=== PATIENT | female | born 1985 | race Caucasian/White ===

== ENCOUNTER 2016-06-08 12:10 | Inpatient (IN) | payer OTHER ==
[~2016-06-08] VITALS: Ht 162.6 cm; Wt 93.2 kg
[2016-06-08] VITALS (10 sets, daily range): BP systolic 100–148; BP diastolic 64–94; PULSE 94–146; RESP 20–24; O2SAT 91–95
[~2016-06-08 12:10] MED LIST: ALBU2.5V4 IH; ALBU90AE IH; AMT50T PO; CHOL200025 PO; IPRA3AMP IH; LEVO5TAB13 PO; MAGN400T4 PO; MONT10TA23 PO; NPR500T PO; OMEP40CA36 PO; PAROXETINE HCL PO; POLY17PO2 PO; RIBOFLAVIN PO; TIOT18CA3 IH
[2016-06-08 12:49] LABS: BASOPHILS % (AUTO) 0.4 % (0-3); EOSINOPHILS % (AUTO) 0.1 % (0-5); MONOCYTES % (AUTO) 15.8 % (4-12); Mean Corpuscular Hemoglobin 30.7 pg (27.0-35.0); Mean Corpuscular Volume 88.9 fL (81-100); NEUTROPHILS % (AUTO) 64.8 % (40-74); Platelet Count 213 bil/L (150-400)
--- NOTE | 2016-06-08 12:57 | DRSVH ---
PROCEDURE: X-RAY CHEST ONE VIEW, PORTABLE ([id number]) INDICATIONS: SOB, CHEST PAIN TECHNIQUE: One view of the chest was acquired. COMPARISON: 01/05/2016 FINDINGS: Surgical changes and devices: None. Lungs and pleura: No pleural effusions or pneumothorax. Lungs are clear. Mediastinum: Mediastinal contours appear normal. Heart size is normal. Bones and chest wall: No suspicious bony lesions. Overlying soft tissues appear unremarkable. IMPRESSION: No acute cardiopulmonary abnormality Dictated by: Yves Franco M.D. on 06/08/2016 at 12:55 Approved by: Yves Franco M.D. on 06/08/2016 at 12:55
[2016-06-08] MEDS ORDERED: 0.9% Sodium Chloride 1,000 ML IV ONE (13:05)
[2016-06-08] MEDS ORDERED: Albuterol-Ipratropium 3 mL Inhalation Solution NEB ONE (13:05)
--- NOTE | 2016-06-08 13:18 | ED.REPORT ---
HPI-Dyspnea / Wheezing Date of Service Jun 08, 2016 ED Provider: Sea Carlos MD 31-year-old woman presents with shortness of breath, dry cough, fever, nausea, vomiting 3 days. She said she had a fever of 103 around 3am, she went in the shower to try to decrease her fever then went to lay back down in bed and felt to 9 out of 10 stabbing sensation in her chest that radiated into her back. She has weakness all over, has not been able to eat or keep anything down for the last 3 days, has not had any diarrhea or constipation. She denies any rashes, claims to having a headache, no changes in vision, but is a little dizzy. She has a history of moderate persistent asthma for which she takes daily steroids, as well as nebulizers as needed. She has not taken any breathing treatments today. The chest pain described as being substernal radiating into the back with some radiation across the right breast into the right axilla. She has a significant family history of aortic dissection in her maternal grandmother. She said she had this type of pain before only not as severe as 6 months ago, and was told that it was due to pneumonia. Nursing Notes Stated Complaint: CHEST PAIN Chief Complaint: Respiratory Complaints Nursing Notes Reviewed: Yes Allergies: Coded Allergies: latex (Verified Allergy, Severe, BLISTERS/RASH, 06/08/16) watermelon (Verified Allergy, Severe, Anaphylaxis, 06/08/16) meloxicam (Verified Allergy, Unknown, UNKNOWN, 06/08/16) Anesthetics - Amide Type (Verified Adverse Reaction, Severe, takes her a long time to wake up, 06/08/16) ropinirole (Verified Adverse Reaction, Severe, LOWER LEG EDEMA, 06/08/16) Uncoded Allergies: Foam soap/artist model (Adverse Reaction, Intermediate, Hives, 12/21/14) Scheduled Amitriptyline (Amitriptyline) 50 Mg Tab 50-100 MG PO HS Cholecalciferol (Vitamin D3) (Vitamin D3) 2,000 Unit Tablet 2,000 UNIT PO QAM Fluticasone Propionate (Flonase Allergy Relief) 50 Mcg/Actuation Spring.susp 1 SPRAY NS QAM Fluticasone/Salmeterol (Advair 500-50 Diskus) 1 Each Disk.w.dev 1 PUFF IH BID Levocetirizine Dihydrochloride (Levocetirizine Dihydrochloride) 5 Mg Tablet 5 MG PO QAM Magnesium Oxide (Magnesium Oxide) 400 Mg Tablet 400 MG PO BID Montelukast (Montelukast) 10 Mg Tablet 10 MG PO QAM Olanzapine (Olanzapine) 5 Mg Tablet 5 MG PO QAM Omeprazole (Omeprazole) 40 Mg Capsule.dr 40 MG PO QAM Paroxetine HCl (Paroxetine ER) 25 Mg Tab.er.24h 25 MG PO HS Riboflavin (Vitamin B-2) 25 Mg Tablet 100 MG PO QAM Tiotropium Bigelow (Spiriva) 18 Mcg Cap.w.dev 18 MCG IH QAM Scheduled PRN Albuterol Neb Soln (Albuterol Neb Soln) 2.5 Mg/3 Ml Vial.neb 2.5 MG IH 6-7X DAY PRN PRN For Shortness of Breath Albuterol Sulfate (Proair Respiclick) 90 Mcg Aer.pow.ba 2 PUFF IH Q4H PRN PRN For Shortness of Breath Ipratropium/Albuterol Sulfate (Iprat-Albut 0.5-3(2.5) mg/3 mL Inhalant Soln) 3 Ml Ampul.neb 3 ML IH Q6 PRN PRN For Shortness of Breath DO NOT USE SPIRIVA WHILE TAKING DUONEB Polyethylene Glycol 3350 (Polyethylene Glycol 3350) 17 Gm Powd.pack 17 GM PO PRN prn General Time Seen by MD: 12:39 Chief Complaint Chest pain Stabbing 9.5 out of 10. Location: : Chest right: Substernal Quality: Stabbing Risk Factors CAD Risk Stratification Risk factors reviewed PE Risk Stratification Risk factors reviewed Past Medical History Past Medical History Anxiety Depression Asthma with developing COPD. Atrial fibrillation Tinnitus Sleep apnea Restless leg syndrome Pseudocholinesterase deficiency Pneumonia Menometrorrhagia Headaches Reports: Asthma, COPD, GERD Reports: Depression Past Surgical History Pins into left wrist from fracture 10 years old Reports: Hysterectomy Reports: Tubal ligation Family History Grandmother hypertension, Heart disease Maternal uncle diabetes type II Uncle brain cancer Smoking History Current Every Day Smoker (half a cigarette a day) Social History Lives with family at home Alcohol Use: Denies alcohol use Drug Use: THC (Annable's) Other Social History: Occupation stay at home mom. Ambulatory Status Independent Review of Systems Complete sys rev & neg: except as marked. Physical Exam General: Laying in bed, moderate respiratory distress, HEENT: Normocephalic, atraumatic, EOMI grossly, mucous membranes moist, conjunctiva pink. scars inferior lateral lip bilaterally. Cardiovascular: Tachycardic, rhythm appears regular, peripheral pulses 2/4 upper and lower extremities equal bilaterally. Pulmonary: Expiratory wheezing left greater than right, and chest excursion normal, tachypneic. Abdominal: Soft to palpation, bowel sounds present 4, no hepatosplenomegaly. Negative rebound. Extremities: No edema appreciated. No tenderness, asymmetry. Neuro: Neurologically grossly intact, strength is equal bilaterally upper and lower extremities. MSK: Able to move extremities on their own volition, strength 5 out of 5 equal bilaterally to upper and lower extremities. Initial Vital Signs Vital Signs (First) Date Time Temp Pulse Resp B/P Pulse Ox O2 Delivery O2 Flow Rate FiO2 06/08/16 12:14 37.5 146 20 126/79 95 06/08/16 12:31 Room Air 06/08/16 14:17 2 Initial VS: Reviewed Interpretation & Diagnostics Lab Results Interpretation Result Diagram: 06/09/16 0713 06/08/16 1215 Test 06/08/16 12:15 D-Dimer < 0.50mg/L FEU (<0.50) Hemoglobin A1c 4.9% (4.8-5.6) Magnesium Level 2.1mg/dL (1.6-2.6) Total Bilirubin 0.4mg/dL (0.0-1.2) Aspartate Amino Transf (AST/SGOT) 15U/L (0-50) Alanine Aminotransferase (ALT/SGPT) 13U/L (0-32) Alkaline Phosphatase 53U/L (25-150) Troponin T < 0.010ug/L (0.0-0.011) Total Protein 7.7g/dL (6.4-8.4) Albumin 4.6g/dL (3.4-5.0) Lipase 25U/L (13-60) Hold Vega Top Tube Received (Received) Lab Results Interpretation: Mild hemochromatosis Negative d-dimer X-Ray Chest Interpretation Chest Xray Interpretation: IMPRESSION: No acute cardiopulmonary abnormality Dictated by: Yves Franco M.D. on 06/08/2016 at 12:55 CT Chest Interpretation IMPRESSION: 1. No findings to suggest aortic dissection. Of note, the aortic root is poorly characterized given cardiac motion artifact. 2. No central acute pulmonary embolus. 3. Mild, diffuse pulmonary radiopacities as above. Given the acuity of these findings, differential considerations include viral pneumonitis or interstitial pneumonitis. These findings were discussed with Dr. Ramirez at 4 PM on 06/08/16. Dictated by: Laxmi Gerard M.D. on 06/08/2016 at 15:50 Procedures Procedure Notes: Road test: Patient desaturated 92% while ambulating on room air through the emergency department Re-Eval/Medical Decision Med Decision/Clinical Course Patient with a history of moderate persistent asthma presented with worsening shortness of breath, and stabbing chest pain radiating into her back, family history of aortic dissection, and current smoker. Initial troponin was negative , angio CT did not show signs of dissection or pulmonary embolism, however there were opacities suggesting viral pneumonitis or interstitial pneumonitis. Patient was hospitalized previously for similar complaints and required hospital stay for treatment for pneumonia. Discussed with patient the findings and our concerns, and requested hospital admission for Bilateral community acquired pneumonia and hypoxic respiratory failure. Source of Hx: Old records Consultation : Referral / Consult Name: Jem Valderrama MD Consulted With: Hospitalist Requested Call at: 16:40 Call Returned at: 16:44 Professor Of Archaeology: Will see patient, Agrees with plan, Accepts admit Differential Diagnosis: Positive: Asthma, Pulmonary embolism, Respiratory failure Counseled Regarding: Diagnosis, Lab results, Need for admission Discharge & Departure Impression: Primary Impression: Community acquired bacterial pneumonia Additional Impression: Acute respiratory failure with hypoxia and hypercapnia Disposition: ADMITTED TO HOSPITAL Discharge Condition All VS Reviewed: Yes Condition: Stable Referrals: Braydon Pruitt DO (PCP) Attending Statement The patient was seen and examined together with Dr. Ramirez on 06/08/16 and I agree with the history, exam and plan as outlined in the note above. Gee Ramirez DO Jun 08, 2016 13:18 Sea Carlos MD Jun 09, 2016 07:23 Lab Results Interpretation: Mild hemochromatosis Negative d-dimer X-Ray Chest Interpretation Chest Xray Interpretation: IMPRESSION: No acute cardiopulmonary abnormality Dictated by: Yves Franco M.D. on 06/08/2016 at 12:55 CT Chest Interpretation IMPRESSION: 1. No findings to suggest aortic dissection. Of note, the aortic root is poorly characterized given cardiac motion artifact. 2. No central acute pulmonary embolus. 3. Mild, diffuse pulmonary radiopacities as above. Given the acuity of these findings, differential considerations include viral pneumonitis or interstitial pneumonitis. These findings were discussed with Dr. Ramirez at 4 PM on 06/08/16. Dictated by: Laxmi Gerard M.D. on 06/08/2016 at 15:50 Procedures Procedure Notes: Road test: Patient desaturated 92% while ambulating on room air through the emergency department Re-Eval/Medical Decision Med Decision/Clinical Course Patient with a history of moderate persistent asthma presented with worsening shortness of breath, and stabbing chest pain radiating into her back, family history of aortic dissection, and current smoker. Initial troponin was negative , angio CT did not show signs of dissection or pulmonary embolism, however there were opacities suggesting viral pneumonitis or interstitial pneumonitis. Patient was hospitalized previously for similar complaints and required hospital stay for treatment for pneumonia. Discussed with patient the findings and our concerns, and requested hospital admission for Bilateral community acquired pneumonia and hypoxic respiratory failure. Source of Hx: Old records Consultation : Referral / Consult Name: Jem Valderrama MD Consulted With: Hospitalist Requested Call at: 16:40 Call Returned at: 16:44 Professor Of Archaeology: Will see patient, Agrees with plan, Accepts admit Differential Diagnosis: Positive: Asthma, Pulmonary embolism, Respiratory failure Counseled Regarding: Diagnosis, Lab results, Need for admission Discharge & Departure Impression: Primary Impression: Community acquired bacterial pneumonia Additional Impression: Acute respiratory failure with hypoxia and hypercapnia Disposition: ADMITTED TO HOSPITAL Discharge Condition All VS Reviewed: Yes Condition: Stable Referrals: Braydon Pruitt DO (PCP) Gee Ramirez DO Jun 08, 2016 13:18
[2016-06-08 13:22] LABS: TROPONIN T < 0.010 ug/L (0.0-0.011)
[2016-06-08 13:31] LABS: Magnesium 2.1 mg/dL (1.6-2.6)
--- NOTE | 2016-06-08 16:06 | DRSVH ---
PROCEDURE: CT ANG CHEST/ABD W/WO CONTRAST ([id number]) INDICATIONS: chest pain TECHNIQUE: Precontrast 5 mm thick sections acquired from the lung apices to the iliac crests. After the adminis tration of intravenous contrast, 3 mm thick sections again acquired from the lung apices to the iliac crests. 3-dimensional maximum intensity projection (MIP) oblique sagittal and coronal reformats wer e then acquired, and/or 3-dimensional volume rendering reformats. For radiation dose reduction, the following was used: automated exposure control. COMPARISON: [facility], CT, CT ANGIO CHEST PE, 03/12/2015, 22:18. [facility] , CT, CT ANGIO CHEST PE, 12/27/2015, 15:42. FINDINGS: Image quality: Excellent. AORTA: Motion artifact limits evaluation of the aortic root. The thoracic and abdominal aorta demonstrate ot herwise normal caliber and course. No mural hematoma, atheromatous plaque, calcification, aneurysmal dilatation, stenosis, or ulceration. No findings to suggest aortic dissection. No periaortic fat stra nding or fluid. CHEST: Lungs and pleura: Patchy air space opacities are present bilaterally, with a central distribution, sp aring the periphery of the lungs. These are new when compared with the prior CT of the chest dated . No pleural effusion or pneumothorax. Mediastinum: Heart size is normal. No pericardial effusion. No mediastinal or hilar adenopathy by size criteria. Central pulmonary arteries are normal in size. There are no filling defects within th e central or segmental pulmonary arteries to suggest acute pulmonary embolus. Esophagus is normal in caliber. No hiatal hernias. Bones and chest wall: No axillary adenopathy by size criteria. Thyroid gland is unremarkable. No s uspicious bony lesions. No vertebral body compression fractures. ABDOMEN: Vasculature: Celiac trunk and mesenteric arteries are patent. Renal arteries are also patent. Solid organs: Liver and spleen are normal in size. Gallbladder is unremarkable. Biliary system is non dilated. Pancreas enhances normally. No adrenal nodules. Both kidneys are normal in size and e nhancement, without hydronephrosis. Peritoneum and bowel: No free fluid or air. Bowel loops are normal in caliber and wall thickness. Nodes and vessels: No retroperitoneal or mesenteric adenopathy by size criteria. Inferior vena cava is normal in morphology. Bones: No suspicious bony lesions. No vertebral body compression fractures. Miscellaneous: No ventral hernias. IMPRESSION: 1. No findings to suggest aortic dissection. Of note, the aortic root is poorly characterized given c ardiac motion artifact. 2. No central acute pulmonary embolus. 3. Mild, diffuse pulmonary radiopacities as above. Given the acuity of these findings, differential c onsiderations include viral pneumonitis or interstitial pneumonitis. These findings were discussed with Dr. Ramirez at 4 PM on 06/08/16. Dictated by: Laxmi Gerard M.D. on 06/08/2016 at 15:50 Approved by: Laxmi Gerard M.D. on 06/08/2016 at 16:05
[2016-06-08] MEDS ORDERED: cefTRIAXone Inj 1,000 MG in Dextrose 5% Minibag Plus 50 ML IV ONE (16:50)
[2016-06-08] MEDS ORDERED: Polyethylene Glycol (PEG) 17 Gm Powder PO PRN ×3 (16:55→18:20)
[2016-06-08] MEDS ORDERED: Heparin 5,000 Unit/mL Inj SUBQ SCH (16:55)
[2016-06-08] MEDS ORDERED: Alum-Mag Hydrox-Simeth 30 mL Suspension PO PRN ×2 (16:55→18:15)
[2016-06-08] MEDS ORDERED: cefTRIAXone Inj 2,000 MG in Dextrose 5% Minibag Plus 50 ML IV ONE (16:55)
[2016-06-08] MEDS ORDERED: MethylprednisoLONE Sodium Succinate 62.5 mg/mL 2 mL Inj IVPUSH ONE (17:05)
--- NOTE | 2016-06-08 17:55 | NUR ---
Admission patient arrived to floor from ED at 1750. Oriented patient to room and hospital policies. Admits to SOB at rest. States pain when inhaling. Lab contacted this RN due to orders received for blood cultures yet ED RN states that IV ABX have already been given. Directed lab to contact ordering MD. Continue frequent rounding.
[2016-06-08] MEDS ORDERED: Albuterol 2.5 mg/3 mL Inhalation Solution NEB PRN (18:20)
[2016-06-08] MEDS ORDERED: OLAN5TAB PO (18:46)
[2016-06-08] MEDS ORDERED: FLUT1DIS5 IH (18:46)
[2016-06-08] MEDS ORDERED: PARO25TA17 PO (18:46)
[2016-06-08] MEDS ORDERED: FLUT9.9S NS (18:46)
[2016-06-08] MEDS ORDERED: RIBO25TA PO (18:49)
[2016-06-08] MEDS: 0.9% Sodium Chloride 1,000 ML IV SCH (18:55)
--- NOTE | 2016-06-08 18:59 | HP ---
[address] [address] HISTORY AND PHYSICAL PATIENT: CLARITA STUBBS : 1985 MR#: [id number] ADMIT: 06/08/2016 JOB ID: [id number] PRIMARY CARE PROVIDER: Braydon Pruitt DO, [facility]. DIRECTOR BUILDING: Crista Hall MD Patient admitted from ED, inpatient status, Blue Team. CHIEF COMPLAINT: Shortness of breath. HISTORY OF PRESENT ILLNESS: This is a 31-year-old female with significant asthma, who has done pretty well recently but got sick about two weeks ago with wheezing, a little sore throat, noting that her daughter had a little bit of a cough. She saw Dr. Hall, who put her on prednisone for 80 for five days, then 40 mg for five days which helped. Then she stopped it, but got into trouble quickly and presents to the ED with a lot of respiratory difficulties. She had fever up to 103. She did not get her flu shot this year. Her sputum has been pretty clear, nonproductive. She now has a little pleuritic chest pain, also. In the ED, she was given nebulizers, Solu-Medrol, and is a little better. REVIEW OF SYSTEMS: Complete review of systems obtained, all pertinent positives in HPI above, rest of review of systems are negative. PAST MEDICAL HISTORY: 1. Asthma. 2. Reflux disease. 3. Depression. MEDICATIONS: 1. Levocetirizine 5 mg at bedtime. 2. ProAir p.r.n. 3. Albuterol nebulizers p.r.n. 4. DuoNebs p.r.n. when not on Spiriva. 5. Spiriva 1 puff daily. 6. Montelukast daily. 7. Magnesium 400 b.i.d. 8. Paroxetine 25 daily. 9. Omeprazole 40 daily. 10. Riboflavin 100 mg daily. 11. Amitriptyline 50-100 at bedtime p.r.n. sleep. 12. Naproxen p.r.n. ALLERGIES: 1. LATEX. 2. LIDOCAINE. 3. MELOXICAM. 4. ROPINIROLE. 5. BOTH GENERAL AND LOCAL ANESTHETICS. SOCIAL HISTORY: Patient lives with her . Former smoker, having quit about eight years ago. There is no alcohol use and no substance abuse. PHYSICAL EXAMINATION: Afebrile here in the hospital. Heart rate was 146 on admission, currently 121. Respiratory rate 24. Blood pressure is 148/94, and O2 sats are 94% on 1.5 L. There were no hypoxic values in the ED and to this point in time. Skin is warm and dry. Eyes: PERRLA. Mouth shows adequate hydration, no lesions. No JVD. Cardiac regular. No significant murmur. Her lungs have mixed inspiratory/expiratory wheezes. Moderate air entry and few crackles throughout. Abdomen is soft, nonacute, benign. Extremities showed no clubbing, cyanosis, edema. Cranial nerves 2-12 are intact. No gross motor or sensory defects noted. DIAGNOSES: 1. Acute asthma exacerbation present on admission. Active. Will continue with Solu-Medrol at 40 IV q.8. DuoNeb q.i.d. Albuterol nebs p.r.n. Will provide patient with Robitussin for her cough and continue with her montelukast and her riboflavin. 2. Possible acute pulmonary infection present on admission. Active. Viral versus bacterial. Will empirically start the patient on Rocephin and azithromycin with appropriate cultures. Will get Strep and Legionella titers and get a respiratory PCR, and depending on those results, make further decisions. 3. Gastroesophageal reflux disease, present on admission. Stable. Continue PPI, patient is on omeprazole at home. 4. Chronic depression, present on admission. Stable. Continue patient's Paxil. CODE STATUS: FULL CODE. Code sheet filled out.
[2016-06-08] MEDS: Codeine-guaiFENesin 10 mL Syrup PO PRN (20:02)
--- NOTE | 2016-06-08 20:18 | NUR ---
Pain Pt has a persistent dry cough. Difficult for her to talk due to the cough. She c/o chest pain which is worse with coughing rated at a 8 Given codeine syrup and naproxen Will monitor for effectiveness
[2016-06-08] MEDS: Ondansetron 2 mg/mL 2 mL Inj IVPUSH PRN (20:26)
[2016-06-08] MEDS: Albuterol-Ipratropium 3 mL Inhalation Solution NEB SCH (20:48)
[2016-06-08] MEDS: AMITRIP PO SCH (21:00)
[2016-06-08] MEDS: PARoxetine 20 mg Tablet PO SCH (21:57)
[2016-06-09] VITALS (12 sets, daily range): BP systolic 95–112; BP diastolic 59–68; PULSE 67–100; RESP 18–20; O2SAT 92–97
[2016-06-09] MEDS: Heparin 5,000 Unit/mL Inj SUBQ SCH ×3 (00:30→16:30)
[2016-06-09] MEDS: MethylprednisoLONE Sodium Succinate 40 mg/mL Inj IVPUSH SCH ×3 (00:31→19:58)
--- NOTE | 2016-06-09 01:27 | NUR ---
Cough Pt's dry cough has significantly decreased. Denies chest pain Resting comfortably. Will cont to monitor
[2016-06-09] MEDS: 0.9% Sodium Chloride 1,000 ML IV SCH ×2 (03:42→19:59)
[2016-06-09 07:18] LABS: BASOPHILS % (AUTO) 0.2 % (0-3); EOSINOPHILS % (AUTO) 0 % (0-5); MONOCYTES % (AUTO) 5.4 % (4-12); Mean Corpuscular Hemoglobin 30.3 pg (27.0-35.0); Mean Corpuscular Volume 90.4 fL (81-100); NEUTROPHILS % (AUTO) 82.2 % (40-74); Platelet Count 183 bil/L (150-400)
--- NOTE | 2016-06-09 07:55 | PCM.PNMED ---
Subjective Date of Service Jun 09, 2016 Subjective Feels about the same, still SOB and wheezy, no other problems overnight. PCR positive for human metapneumovirus. Exam Vital Signs Vital Sign - Last Date Time Temp Pulse Resp B/P Pulse Ox O2 Delivery O2 Flow Rate FiO2 06/09/16 05:37 36.3 67 18 95/59 93 OxyMask 1.00 Intake and Output 06/08/16 06/08/16 06/09/16 Cumulative From/Thru 15:00 23:00 07:00 06/08/16 12:14 - 06/09/16 06:06 Intake Total 1000 ml 1150 ml 2150 ml Output Total 1100 ml 1100 ml Balance 1000 ml 50 ml 1050 ml Intake Oral 250 ml 250 ml IV Total 1000 ml 900 ml 1900 ml Output Urine Total 1100 ml 1100 ml Exam Eyes; elizabeth eom intact HENT; mouth with out lesions, well hydrated CV; no murmur, regular Resp; diffuse bennett expiatory wheezing, mod air movement GI; soft, benign, non tender Skin; dry, no rash Neuro; 2-12 intact, no gross motor or sensory defects Lab and Diagnostics Result Diagram: 06/09/16 0713 06/08/16 1215 Assessment & Plan 1. Acute asthma exacerbation present on admission. -continue solumedrol at 40 IV q8 hours -duoneb qid and albuterol q2 prn -continue montelukast and her riboflavin -Robitussin for her 2. Acute Viral Pneumonitis present on admission. Active. -PCR positive for human metapneumovirus -supportive care -continue with IV antibiotics today if cultures remain negative consider stopping tomorrow 3. Gastroesophageal reflux disease, present on admission. Stable. -Continue PPI, patient is on omeprazole at home. 4. Chronic depression, present on admission. Stable. -Continue patient's Paxil. 5. Code Status -full code Jem Valderrama MD Jun 09, 2016 07:55
[2016-06-09] MEDS: Albuterol-Ipratropium 3 mL Inhalation Solution NEB SCH ×5 (08:06→20:24)
[2016-06-09] MEDS ORDERED: RIBOFLAVIN 100 MG PO SCH (08:30)
[2016-06-09] MEDS ORDERED: Tiotropium 18mcg/Cap 5 Capsule Inhaler Kit INHALATION SCH (08:30)
[2016-06-09] MEDS: Pantoprazole 40 mg ER24 Tablet PO SCH (08:59)
[2016-06-09] MEDS: cefTRIAXone Inj 2,000 MG in Dextrose 5% Minibag Plus 50 ML IV SCH (10:51)
--- NOTE | 2016-06-09 11:51 | NUR ---
Social Work: Screening Data: Pt is a 31 y/o female admitted for acute hypoxic resp failure, pneumonitis. Pt's PCP is Sonal, pt's insurance is [employer]. EMR reviewed, readmit score not listed. No d/c planning needs anticipated at this time. COOK PIE will continue to follow if needs arise. Assessment: Pt who is independent at baseline. Plan: Pt will d/c home via POV when medically stable. No d/c planning needs anticipated at this time. COOK PIE will continue to follow if needs arise. SURINDER Renteria
--- NOTE | 2016-06-09 19:46 | NUR ---
Respiratory- Up to bedside commode to void, otherwise has been on bedrest. Short of breath with minimal exertion. Patient complained of chest discomfort with coughing. Med given with good results for pain. Cough is unproductive. O2 on at 1.5 liters per oxy mask. Tele- sinus tach.
[2016-06-09] MEDS: PARoxetine 20 mg Tablet PO SCH (21:44)
[2016-06-09] MEDS: Codeine-guaiFENesin 10 mL Syrup PO PRN (21:44)
[2016-06-09] MEDS: AMITRIP PO SCH (21:46)
[2016-06-10] VITALS (13 sets, daily range): BP systolic 98–111; BP diastolic 59–68; PULSE 66–90; RESP 17–18; O2SAT 94–98
[2016-06-10] MEDS: Ondansetron 2 mg/mL 2 mL Inj IVPUSH PRN (00:27)
[2016-06-10] MEDS: Heparin 5,000 Unit/mL Inj SUBQ SCH ×4 (00:30→22:42)
--- NOTE | 2016-06-10 01:43 | NUR ---
Refusing Heparin Injections / Still Need Sputum d/t pain, bruising. provided education on DVT prophylaxis. Specimen cup at bedside, so far non-productive cough.
[2016-06-10] MEDS: MethylprednisoLONE Sodium Succinate 40 mg/mL Inj IVPUSH SCH ×3 (04:36→15:55)
[2016-06-10] MEDS: Pantoprazole 40 mg ER24 Tablet PO SCH (06:32)
--- NOTE | 2016-06-10 08:00 | PCM.PNMED ---
Subjective Date of Service Jun 10, 2016 Subjective Uneventfull night. Patient says she is breathing a bit better. Some sputum, clear. No fever. Exam Vital Signs Vital Sign - Last Date Time Temp Pulse Resp B/P Pulse Ox O2 Delivery O2 Flow Rate FiO2 06/10/16 06:08 36.6 68 18 98/59 95 Nasal Cannula 2.00 Intake and Output 06/09/16 06/09/16 06/10/16 Cumulative From/Thru 15:00 23:00 07:00 06/08/16 12:14 - 06/10/16 06:35 Intake Total 3354 ml 931 ml 6435 ml Output Total 1450 ml 800 ml 3350 ml Balance 1904 ml 131 ml 3085 ml Intake Oral 2450 ml 300 ml 3000 ml IV Total 904 ml 631 ml 3435 ml Output Urine Total 1450 ml 800 ml 3350 ml # Bowel Movements 0 0 Exam Eyes; elizabeth eom intact HENT; mouth with out lesions, well hydrated CV; no murmur, regular Resp; less wheezing, moderatea air movement,more rancorous GI; soft, benign, non tender Skin; dry, no rash Neuro; 2-12 intact, no gross motor or sensory defects Lab and Diagnostics Result Diagram: 06/09/1671206/09/16712 Assessment & Plan 1. Acute asthma exacerbation present on admission. -continue solumedrol -duoneb qid and albuterol q2 prn -continue montelukast and her riboflavin -Robitussin for her -try to taper off O2 -OOB 2. Acute Viral Pneumonitis present on admission. Active. -PCR positive for human metapneumovirus -supportive care -continue antibiotic for today then stop tomorrow, cultures negative, 3. Gastroesophageal reflux disease, present on admission. Stable. -Continue PPI, patient is on omeprazole at home. 4. Chronic depression, present on admission. Stable. -Continue patient's Paxil. 5. Code Status -full code Jem Valderrama MD Jun 10, 2016 08:00 Jem Valderrama MD Jun 10, 2016 08:00
[2016-06-10] MEDS: cefTRIAXone Inj 2,000 MG in Dextrose 5% Minibag Plus 50 ML IV SCH (08:07)
[2016-06-10] MEDS: Albuterol-Ipratropium 3 mL Inhalation Solution NEB SCH ×4 (08:11→20:20)
--- NOTE | 2016-06-10 11:02 | NUR ---
Oxygen Oxygenation room air 94%. Continuous pulse oximetry to monitor oxygenation on room air.
--- NOTE | 2016-06-10 11:54 | NUR ---
Telemery per optical engineering technician Tele Sinus 94. Family at bed side and patient having lunch at this time. Denies pain or discomfort.
[2016-06-10] MEDS: 0.9% Sodium Chloride 1,000 ML IV SCH (12:23)
--- NOTE | 2016-06-10 16:00 | NUR ---
Refused Heparin patient refused heparin due to increased bruising in the past.
[2016-06-10] MEDS: PARoxetine 20 mg Tablet PO SCH (20:31)
[2016-06-10] MEDS: Codeine-guaiFENesin 10 mL Syrup PO PRN (20:46)
[2016-06-10] MEDS: AMITRIP PO SCH (20:47)
[2016-06-11] MEDS: MethylprednisoLONE Sodium Succinate 40 mg/mL Inj IVPUSH SCH ×2 (00:20→08:20)
--- NOTE | 2016-06-11 00:24 | NUR ---
Lung sounds / Green sputum expiratory wheezes/congestion increased audibility. Green sputum production 06/10-06/11.
[2016-06-11 01:57] VITALS: BP 98/58; PULSE 67; RESP 19; O2SAT 95
[2016-06-11] MEDS: 0.9% Sodium Chloride 1,000 ML IV SCH (05:09)
[2016-06-11 06:13] VITALS: BP 107/65; PULSE 80; RESP 17; O2SAT 96
[2016-06-11] MEDS: Pantoprazole 40 mg ER24 Tablet PO SCH (06:14)
[2016-06-11 06:25] VITALS: PULSE 91
[2016-06-11 07:50] VITALS: PULSE 60; RESP 18; O2SAT 96
[2016-06-11 08:00] VITALS: PULSE 68
[2016-06-11] MEDS: Albuterol-Ipratropium 3 mL Inhalation Solution NEB SCH (08:02)
[2016-06-11] MEDS: Heparin 5,000 Unit/mL Inj SUBQ SCH (08:21)
[2016-06-11] MEDS: cefTRIAXone Inj 2,000 MG in Dextrose 5% Minibag Plus 50 ML IV SCH (08:21)
--- NOTE | 2016-06-11 09:01 | PCM.DIMED ---
Discharge Instructions Date of Service Jun 11, 2016 Dates of Hospitalization Jun 08, 2016 at 17:37 Discharge Diagnosis Discharge Diagnosis 1. Acute asthma exacerbation 2. Acute Viral Pneumonitis (human metapneumovirus) 3. Gastroesophageal reflux disease, 4. Chronic depression, Diet Heart Healthy Activity Limited until seen by PCP Call your provider Shortness of breath Patient Instructions Follow-up plan Please floow up with your anthropology instructor or primary care provider very soon, continue prednisone at 40 until you are seen and let the doctor taper this down slowly. Follow-up with PCP in: 1 week Jem Valderrama MD Jun 11, 2016 09:01
[2016-06-11] MEDS ORDERED: PRE20 PO (09:02)
--- NOTE | 2016-06-11 09:10 | PCM.DC.MED ---
Discharge Summary Date of Service Jun 11, 2016 Dates of Hospitalization Date of Hospital Admission Jun 08, 2016 at 17:37 Date of Discharge: Jun 11, 2016 Providers: Admitting Physician: Jem Valderrama MD Primary Care Physician: Braydon Pruitt DO Attending Physician: Jem Valderrama MD Diagnosis at Time of Discharge Diagnosis at Time of Discharge 1. Acute asthma exacerbation present on admission, improving 2. Acute Viral Pneumonitis present on admission. improving (due to human metapneumovirus) 3. Gastroesophageal reflux disease, present on admission. Stable. 4. Chronic depression, present on admission. Stable. Procedures XRay, CTs & MRIs Patient Name: CLARITA STUBBS Date of Service: 06/08/16 1417 PROCEDURE: CT ANG CHEST/ABD W/WO CONTRAST ([id number]) IMPRESSION: 1. No findings to suggest aortic dissection. Of note, the aortic root is poorly characterized given cardiac motion artifact. 2. No central acute pulmonary embolus. 3. Mild, diffuse pulmonary radiopacities as above. Given the acuity of these findings, differential considerations include viral pneumonitis or interstitial pneumonitis. These findings were discussed with Dr. Ramirez at 4 PM on 06/08/16. Dictated by: Laxmi Gerard M.D. on 06/08/2016 at 15:50 Brief History CHIEF COMPLAINT: Shortness of breath. HISTORY OF PRESENT ILLNESS: This is a 31-year-old female with significant asthma, who has done pretty well recently but got sick about two weeks ago with wheezing, a little sore throat, noting that her daughter had a little bit of a cough. She saw Dr. Hall, who put her on prednisone for 80 for five days, then 40 mg for five days which helped. Then she stopped it, but got into trouble quickly and presents to the ED with a lot of respiratory difficulties. She had fever up to 103. She did not get her flu shot this year. Her sputum has been pretty clear, nonproductive. She now has a little pleuritic chest pain, also. In the ED, she was given nebulizers, Solu-Medrol, and is a little better. Hospital Course 1. Acute asthma exacerbation present on admission, improving -discharge patient today, stay on prednisone 40 daily until seen by pcp or pumonologist, who can slowly taper off the prednison. -continue nebulizers as before 2. Acute Viral Pneumonitis present on admission. improving -PCR positive for human metapneumovirus 3. Gastroesophageal reflux disease, present on admission. Stable. -Continue PPI, patient is on omeprazole at home. 4. Chronic depression, present on admission. Stable. -Continue patient's Paxil. 5. Code Status -full code Exam Vital Signs (Last) Date Time Temp Pulse Resp B/P Pulse Ox O2 Delivery O2 Flow Rate FiO2 06/11/16 07:50 60 18 96 Room Air 06/11/16 06:13 36.7 107/65 06/10/16 13:27 Exam Eyes; elizabeth eom intact HENT; mouth with out lesions, well hydrated CV; no murmur, regular Resp; good air movement, some end expiratory wheezes GI; soft, benign, non tender Skin; dry, no rash Neuro; 2-12 intact, no gross motor or sensory defects Test 06/08/16 12:15 06/09/16 07:13 06/10/16 08:10 06/11/16 06:15 D-Dimer < 0.50mg/L FEU (<0.50) Hemoglobin A1c 4.9% (4.8-5.6) Magnesium Level 2.1mg/dL (1.6-2.6) Total Bilirubin 0.4mg/dL (0.0-1.2) Aspartate Amino Transf (AST/SGOT) 15U/L (0-50) Alanine Aminotransferase (ALT/SGPT) 13U/L (0-32) Alkaline Phosphatase 53U/L (25-150) Troponin T < 0.010ug/L (0.0-0.011) Total Protein 7.7g/dL (6.4-8.4) Albumin 4.6g/dL (3.4-5.0) Lipase 25U/L (13-60) White Blood Count 5.2th/mm3 (3.8-10.1) Red Blood Count 4.79mil/mm3 (3.90-5.20) Hemoglobin 14.5g/dL (12.0-15.6) Hematocrit 43.3% (35.0-46.0) Mean Corpuscular Volume 90.4fL (81-100) Mean Corpuscular Hemoglobin 30.3pg (27.0-35.0) Mean Corpuscular Hemoglobin Concent 33.5% (32.0-37.0) Red Cell Distribution Width 12.9% (12.3-15.4) Platelet Count 183bil/L (150-400) Neutrophils (%) (Auto) 82.2% (40-74) Lymphocytes (%) (Auto) 11.8% (14-46) Monocytes (%) (Auto) 5.4% (4-12) Eosinophils (%) (Auto) 0% (0-5) Basophils (%) (Auto) 0.2% (0-3) Sodium Level 139mEq/L (134-144) Potassium Level 4.8mEq/L (3.5-5.2) Chloride Level 106mEq/L (97-108) Carbon Dioxide Level 20mmol/L (18-29) Blood Urea Nitrogen 10mg/dL (6-20) Creatinine 0.52mg/dL (0.57-1.00) Estimat Glomerular Filtration Rate 197mL/min (>59) Glucose Level 129mg/dL (60-99) Calcium Level 9.0mg/dL (8.5-10.1) Hold Vega Top Tube Received (Received) Procalcitonin 0.04ng/mL (0.00-0.08) Discharge Medications Discharge Medications Amitriptyline (Amitriptyline) 50 Mg Tab 50-100 MG PO HS (Reported) Cholecalciferol (Vitamin D3) (Vitamin D3) 2,000 Unit Tablet 2,000 UNIT PO QAM ( Reported) Fluticasone Propionate (Flonase Allergy Relief) 50 Mcg/Actuation Gates.susp 1 SPRAY NS QAM (Reported) Fluticasone/Salmeterol (Advair 500-50 Diskus) 1 Each Disk.w.dev 1 PUFF IH BID ( Reported) Levocetirizine Dihydrochloride (Levocetirizine Dihydrochloride) 5 Mg Tablet 5 MG PO QAM (Reported) Magnesium Oxide (Magnesium Oxide) 400 Mg Tablet 400 MG PO BID (Reported) Montelukast (Montelukast) 10 Mg Tablet 10 MG PO QAM (Reported) Olanzapine (Olanzapine) 5 Mg Tablet 5 MG PO QAM (Reported) Omeprazole (Omeprazole) 40 Mg Capsule.dr 40 MG PO QAM (Reported) Paroxetine HCl (Paroxetine ER) 25 Mg Tab.er.24h 25 MG PO HS (Reported) Prednisone (PredniSONE) 20 Mg Tablet 40 MG PO DAILY Prescribed by: Jem VALDERRAMA MD Riboflavin (Vitamin B-2) 25 Mg Tablet 100 MG PO QAM (Reported) Tiotropium Aimwell (Spiriva) 18 Mcg Cap.w.dev 18 MCG IH QAM (Reported) As needed Albuterol Neb Soln (Albuterol Neb Soln) 2.5 Mg/3 Ml Vial.neb 2.5 MG IH 6-7X DAY PRN PRN For Shortness of Breath (Reported) Albuterol Sulfate (Proair Respiclick) 90 Mcg Aer.pow.ba 2 PUFF IH Q4H PRN PRN For Shortness of Breath (Reported) Ipratropium/Albuterol Sulfate (Iprat-Albut 0.5-3(2.5) mg/3 mL Inhalant Soln) 3 Ml Ampul.neb 3 ML IH Q6 PRN PRN For Shortness of Breath (Reported) DO NOT USE SPIRIVA WHILE TAKING DUONEB Polyethylene Glycol 3350 (Polyethylene Glycol 3350) 17 Gm Powd.pack 17 GM PO PRN prn (Reported) Followup Plan Follow-up plan Please floow up with your color control supervisor or primary care provider very soon, continue prednisone at 40 until you are seen and let the doctor taper this down slowly. Discharge Diet: Heart Healthy Discharge Activity: Limited until seen by PCP Follow-up with PCP in: 1 week Time spent 35 minutes spent discharging this patient today. copies to: Crista Hall MD; Braydon Pruitt D Geoffrey MD Jun 11, 2016 09:10
--- NOTE | 2016-06-11 09:19 | NUR ---
Social Work: Discharge Data: Pt is on day 3 of hospitalization. EMR reviewed. D/C orders are in. No d/c planning needs at this time. [employer]UCATION SCIENCE TEACHER will continue to follow if needs arise. Assessment: Pt who is independent at baseline. Plan: Pt will d/c home today via POV. No d/c planning needs at this time. [employer] EDUCATION SCIENCE TEACHER will continue to follow if needs arise. SURINDER Renteria
[2016-06-11 09:22] VITALS: BP 112/68; PULSE 80; RESP 18; O2SAT 93
--- NOTE | 2016-06-11 11:12 | NUR ---
Discharge Pt d/c home as ordered. Removed IV, catheter intact, no bleeding. Provided pt with d/c paperwork and instructions, including carenotes and prescriptions. Pt verbalizes good understanding of diagnosis and plan, states she already has a follow-up appt scheduled. Pt currently in room, getting dressed, waiting for ride.
== END 2016-06-11 11:15 | disposition home or self-care (01) | DRG 202 ==
LOC: SED 12:10 → MPC 17:37
PROVIDERS: ADMIT Hospitalist; ATTEND Hospitalist
DX: J45.901 Unspecified asthma with (acute) exacerbation (principal); J18.9 Pneumonia, unspecified organism; Z87.891 Personal history of nicotine dependence; K21.9 Gastro-esophageal reflux disease without esophagitis; F32.9 Major depressive disorder, single episode, unspecified; B97.81 Human metapneumovirus as the cause of diseases classified elsewhere